=== PATIENT | female | born 1940 | race Caucasian/White ===

== ENCOUNTER → 2016-09-24 | Outpatient (CLI) | payer OTHER, MEDICARE ==
[~2016-09-24] MED LIST: GADOBUTROL 10 ML VIAL IVP ONE
--- NOTE | 2016-09-24 18:32 | MR ---
MRI Thoracic Spine, Without and With Contrast History: T4-T5 diskitis. T7 intramedullary cord lesion. Follow up. Previous breast cancer. M46.4 4. Technique: Sagittal T1/T2/STIR and axial T1/T2-weighted and postcontrast sagittal and axial t1-weigh jeronimo MR series of the thoracic spine prior to and following the uneventful intravenous administration of 7 mL of Gadavist contrast. Comparison: Multiple prior MRIs from 2016. Most recent MRI May 2016. Findings T4-T5: Severe disk space narrowing, with complete loss of disk height, endplate enhancement, and adj acent vertebral body enhancement of T4 and T5 vertebral bodies, appearing similar to the May 2016 study although the disk fluid at T4-T5 appears less impressive suggesting continued slight improveme nt of diskitis and osteomyelitis. No evidence of epidural abscess. Dorsal disk/osteophyte complex a t T4-T5 results in moderate central canal stenosis, with slight cord compression and deformity and pa rtial effacement of the ventral subarachnoid space. No evidence of cord edema. No new foci of diski tis or osteomyelitis. Intramedullary enhancing homogeneous core lesion, with slight cord expansion, at the T7-T8 disk space level, measuring approximately 7 x 5 mm, appears stable in size to previous studies. No new enhanci ng cord lesions. C5-C6: Severe degenerative disk disease, with dorsal disk/osteophyte complex, resulting in severe ce ntral canal stenosis, with cord compression and deformity, and severe bilateral neural foraminal sten osis on the sagittal series. No adnexal imaging through this region. C6-C7 and C7-T1: Severe degenerative disk disease, with dorsal disk/osteophyte complexes, resulting in mild to moderate central canal stenosis and moderate to severe bilateral neural foraminal stenosis , worse at C6-C7. T1-T2: Severe degenerative disk disease and degenerative anterolisthesis, with dorsal disk/osteophyt e complex and bilateral facet arthropathy, resulting in moderate central canal stenosis, with slight cord compression and deformity and moderate to severe bilateral neural foraminal stenosis. T2-T3: Mild degenerative disk disease, without stenosis. T3-T4: Mild degenerative disk disease and mild bilateral facet arthropathy resulting in mild central canal stenosis and mild bilateral neural foraminal stenosis. T5-T6: No disk herniation or stenosis. T6-T7: No disk herniation or stenosis. T7-T8: No disk herniation or stenosis. T8-T9: No disk herniation or stenosis. T9-T10: Mild bilateral facet arthropathy, without stenosis. T10-T11: Moderate bilateral facet arthropathy and mild degenerative disk disease, with mild disk bul ge, resulting in mild central canal stenosis and mild to moderate bilateral neural foraminal stenosis . T11-T12: Moderate bilateral facet arthropathy resulting in mild to moderate bilateral neural foramin al stenosis, without central canal stenosis. T12-L1: Severe degenerative disk disease, with dorsal disk/osteophyte complex and severe bilateral f acet arthropathy, resulting in mild to moderate central canal stenosis and moderate to severe bilater al neural foraminal stenosis. Impressions 1. Minimal improvement in T4-T5 diskitis and osteomyelitis since May 2016, with residual severe degenerative disk disease, kyphosis, dorsal disk/osteophyte complex, and enhancing vertebral bodies, resulting in moderate central canal stenosis, with slight cord compression. 2. No new foci of diskitis or osteomyelitis. No epidural abscess. 3. Nonspecific intramedullary enhancing cord lesion at the T7-T8 level, with a differential diagnosi s of metastasis, astrocytoma, or ependymoma. 4. Please see above findings. E:meliton
== END ==
LOC: FIMAGING 10:38
PROVIDERS: ATTEND Physician Assistant
DX: M46.44 Discitis, unspecified, thoracic region (principal); M46.24 Osteomyelitis of vertebra, thoracic region; G95.9 Disease of spinal cord, unspecified; M48.04 Spinal stenosis, thoracic region; Z85.3 Personal history of malignant neoplasm of breast; Z01.812 Encounter for preprocedural laboratory examination
CPT/HCPCS: 72157; A9585

== ENCOUNTER → 2017-04-05 | Outpatient (CLI) | payer OTHER, MEDICARE | LOC: FIMAGING 12:59 | PROVIDERS: ATTEND Physician Assistant | DX: M46.44 Discitis, unspecified, thoracic region (principal); S24.159A Other incomplete lesion at unspecified level of thoracic spinal cord, initial encounter; M51.34 Other intervertebral disc degeneration, thoracic region | CPT/HCPCS: 72157; A9585 ==

== ENCOUNTER → 2017-07-01 | Outpatient (CLI) | payer OTHER, MEDICARE | LOC: FIMAGING 10:08 | PROVIDERS: ATTEND Internal Medicine | DX: Z12.31 Encounter for screening mammogram for malignant neoplasm of breast (principal); Z85.3 Personal history of malignant neoplasm of breast; Z92.3 Personal history of irradiation | CPT/HCPCS: G0202 ==

== ENCOUNTER → 2017-09-29 | Outpatient (CLI) | payer OTHER, MEDICARE | LOC: FIMAGING 11:57 | PROVIDERS: ATTEND Physician Assistant | DX: G95.9 Disease of spinal cord, unspecified (principal); M51.34 Other intervertebral disc degeneration, thoracic region; M47.895 Other spondylosis, thoracolumbar region; Z85.3 Personal history of malignant neoplasm of breast | CPT/HCPCS: 72157; A9585 ==

== ENCOUNTER 2018-04-30 22:09 | Emergency (ER) | payer OTHER, MEDICARE ==
--- NOTE | 2018-04-30 22:39 | EDPHY ---
H & P Stated Complaint: laceration of forehead r/t fell today Time Seen by Provider: 04/30/18 22:26 HPI/ROS: CHIEF COMPLAINT: Forehead laceration HISTORY OF PRESENT ILLNESS: 78 year old female no anticoagulant use states that approximately 3:00 p.m. Today when she was walking across the street in [facility] she tripped and fell impacting her right frontal region sustaining a circular linear laceration to her right frontal region. No loss of consciousness. No headache no nausea or vomiting. She did not want seek medical attention [place] and waited until she returned to [place]. She [place] directly from the airport to the hospital. REVIEW OF SYSTEMS: 10 systems reviewed and negative with the exception of the elements mentioned in the history of present illness PAST MEDICAL/SURGICAL HISTORY: no anticoagulant use, no relevant medical/ surgical history SOCIAL HISTORY: denies alcohol use at time of incident PHYSICAL EXAM 1) GENERAL: Well-developed, well-nourished, alert and oriented. Appears to be in no acute distress. Answering questions appropriately. 2) HEAD: Normocephalic, right frontal 1.5 cm linear laceration with adjacent 2.5 cm abrasion 3) HEENT: Pupils equal, round, reactive to light bilaterally. Negative Horners. Nasopharynx, oropharynx, clear. No deformity or angulation of nose. No septal hematoma. No rhinorrhea. No oral trauma. Ears bilaterally with normal tympanic membranes. No hemotympanum. No fluid or blood in the external auditory canal. No raccoon eyes. No Mosquera sign. Teeth are normally aligned with no gross malocclusion, TMJ bilaterally nontender, facial bones nontender including the zygomatic arch, maxilla mandible. 4) NECK: No cervical collar is on. Posterior cervical spine is nontender, no stepoff, no effusion. Full range of motion which does not elicit any midline cervical spine pain, no posterior midline tenderness, no step-off. 5) LUNGS: Clear to auscultation bilaterally, no wheezes, no rhonchi, no retractions. No obvious signs of trauma. No chest wall pain. No flaring, no grunting. Moving symmetrically. No crepitus. 6) HEART: [Regular rate and rhythm, 7) ABDOMEN: No guarding, no rebound, no focal tenderness, no peritoneal signs, no signs of trauma, no ecchymosis 8) MUSCULOSKELETAL: Moving all extremities, no focal areas of tenderness, no obvious trauma. 9) BACK: No midline vertebral tenderness, no fluctuance, no step-off, no obvious trauma, no visual or palpable abnormality. 10) SKIN: Forehead laceration 11) NEURO: Awake, alert, and oriented to person, place and time. Answers questions appropriately. There were no obvious focal neurologic abnormalities. No cerebellar dysfunction. Cranial nerves 2 through to 12 intact. Normal steady gait. Upper and lower extremities bilaterally with strength 5 / 5, reflexes 2+. DIFFERENTIAL DIAGNOSIS: Not necessarily in any particular order, my differential diagnosis includes, but is not limited to, concussion, skull fracture, intraparenchymal contusion, subarachnoid, subdural and epidural hematoma. The patient understands that this diagnosis is provisional and can never be 100% accurate. - Personal History Current Tetanus Diphtheria and Acellular Pertussis (TDAP): Yes Tetanus Vaccine Date: < 10 years - Medical/Surgical History Hx Asthma: No Hx Chronic Respiratory Disease: No Hx Diabetes: No Hx Cardiac Disease: No Hx Renal Disease: No Hx Cirrhosis: No Hx Alcoholism: No Hx HIV/AIDS: No Hx Splenectomy or Spleen Trauma: No Other PMH: Breast CA, Bladder CA - Social History Smoking Status: Never smoked Constitutional: Initial Vital Signs Temperature (C) 37.1 C 04/30/18 22:19 Heart Rate 84 04/30/18 22:19 Respiratory Rate 18 04/30/18 22:19 Blood Pressure 158/73 H 04/30/18 22:19 O2 Sat (%) 94 04/30/18 22:19 O2 Delivery Mode Room Air Allergies/Adverse Reactions: No Known Allergies Allergy (Verified 05/04/13 11:40) Home Medications: Medication Instructions Recorded Aspirin [Aspirin 81mg (*)] 81 mg PO DAILY 04/17/16 Atorvastatin Calcium [Lipitor 40 40 mg PO DAILY 04/17/16 mg (*)] Cholecalciferol Vit D3 [Vitamin D3 1,000 units PO DAILY 04/17/16 (*)] Glucosamine/Chondroitin 1 each PO DAILY 04/17/16 [Glucosamine/Chondroitin (*)] Herbals/Supplements -Info Only 1 ea PO DAILY 04/17/16 Levothyroxine [Synthroid 137 mcg 137 mcg PO DAILY06 04/17/16 (*)] Lisinopril/Hydrochlorothiazide 1 each PO DAILY 04/17/16 [Zestoretic 20-25 mg Tablet] Naproxen Sodium [Aleve 220 MG (*)] 220 - 440 mg PO DAILY PRN 04/17/16 [facility]-3 Fatty Acids [Fish Oil 1000 1,000 mg PO DAILY 04/17/16 mg (*)] Acetaminophen [Tylenol 325mg (*)] 650 mg PO Q4 PRN #0 tab 04/20/16 Alteplase [Cathflo Activase 2 mg 2 mg IVP PRN PRN #0 vial 04/20/16 (*)] Cefepime HCl [Maxipime] 2 gm IV Q12 #0 vial 04/20/16 Docusate Sodium [Colace 100 MG (*)] 100 mg PO BID #0 cap 04/20/16 Sennosides [Senokot] 2 tab PO DAILY #0 tab 04/20/16 Vancomycin HCl/Normal Saline 250 ml IV Q12H #0 bag 04/20/16 [Vancomycin 1 gm (Premix)] oxyCODONE IR [Oxycodone Ir (*)] 10 mg PO TID PRN #30 tab 04/20/16 Medical Decision Making - Diagnostics Imaging Results: CT imaging negative for posttraumatic sequelae and interpreted by staff radiologist with images reviewed myself Procedures: Procedure: Laceration repair. I explained the indications, risks and benefits for both laceration repair and anesthetic administration. Verbal consent was obtained from the patient . The laceration on the forehead was anesthetized using 0.5% bupivicaine with epinephrine . After anesthetic administered the patient was observed for a period of time and had no apparent adverse effects. The wound was cleaned, prepped, draped in normal sterile fashion and explored to its base. No foreign body seen, no foreign bodies palpated. There were no deep structures involved. The wound was repaired with tissue adhesive. The wound repair was simple. The procedure was performed by myself. Patient has been informed that scarring will occur, although efforts have been made to minimize this. ED Course/Re-evaluation: 1040 pm: Head CT ordered in this patient for trauma for the following indication: Greater than 65 years old. Patient was re-evaluated with serial examinations. Discussed her negative imaging results. Primary wound closure in the ER. Answering questions appropriately. I Think she can be discharged. Usual and customary head injury precautions and instructions provided. All questions and concerns addressed by myself. I saw this patient independently based on established practice protocols. Care of patient under supervision of secondary supervising physician Dr Guzmán . Departure - Departure Disposition: Home, Routine, Self-Care Clinical Impression: Head injury due to trauma Qualifiers: Encounter type: initial encounter Qualified Code(s): S09.90XA - Unspecified injury of head, initial encounter Laceration of forehead Qualifiers: Encounter type: initial encounter Qualified Code(s): S01.81XA - Laceration without foreign body of other part of head, initial encounter Condition: Good Instructions: Laceration (ED), Skin Adhesive Care (ED) Additional Instructions: ALTHOUGH THERE IS NO EVIDENCE OF SERIOUS HEAD INJURY AT THIS TIME, DELAYED SIGNS CAN APPEAR 24 TO 48 HOURS AFTER INJURY. PLEASE RETURN TO THE EMERGENCY DEPARTMENT (ED) IMMEDIATELY IF YOU HAVE INCREASED HEADACHE, PERSISTENT HEADACHE , VOMITING, WEAKNESS, CONFUSION OR VISUAL PROBLEMS. WE RECOMMEND THAT YOU DO NOT RESUME CONTACT SPORTS OR ACTIVITIES THAT TAKE COORDINATION OR BALANCE SUCH SKIING OR RIDING A BICYCLE UNTIL CLEARED TO DO SO BY YOUR DOCTOR OR BY A NEUROLOGIST. Referrals: Domonique Moore MD [Primary Care Provider] - 1-2 days without fail
[2018-04-30] MEDS ORDERED: SKIN ADHESIVE (DERMABOND) 1 EACH TP ONE (22:48)
[2018-04-30 23:48] VITALS: BP 154/72
== END 2018-04-30 23:48 | disposition home or self-care (01) ==
PROC: 0HQ1XZZ Repair Face Skin, External Approach (ICD-10-PCS; principal; 2018-04-30)
DX: S01.81XA Laceration without foreign body of other part of head, initial encounter (principal); W01.0XXA Fall on same level from slipping, tripping and stumbling without subsequent striking against object, initial encounter; Y92.410 Unspecified street and highway as the place of occurrence of the external cause

== ENCOUNTER → 2018-07-04 | Outpatient (CLI) | payer OTHER, MEDICARE | LOC: FIMAGING 11:30 | PROVIDERS: ATTEND Internal Medicine | DX: Z12.31 Encounter for screening mammogram for malignant neoplasm of breast (principal); Z85.3 Personal history of malignant neoplasm of breast; Z80.3 Family history of malignant neoplasm of breast ==

== ENCOUNTER → 2018-11-28 | Outpatient (CLI) | payer OTHER, MEDICARE | LOC: FIMAGING 10:42 | PROVIDERS: ATTEND Physician Assistant | DX: S24.153A Other incomplete lesion at T7-T10 level of thoracic spinal cord, initial encounter (principal); M50.33 Other cervical disc degeneration, cervicothoracic region; M48.05 Spinal stenosis, thoracolumbar region; S22.040A Wedge compression fracture of fourth thoracic vertebra, initial encounter for closed fracture | CPT/HCPCS: 72157; A9585; 82565-PO ==